=== PATIENT | female | born 1960 | race Caucasian/White ===

== ENCOUNTER 2018-06-17 06:33 | Emergency (ER) | payer OTHER ==
[2018-06-17 06:51] VITALS: TEMP 98.5; BMI 29.6
--- NOTE | 2018-06-17 07:35 | PDOC ---
History of Present Illness - General Chief Complaint: Dysphagia Stated Complaint: THROAT SWELLING Time Seen by Provider: 06/17/18 07:18 - History of Present Illness Initial Comments: 06/17/18 08:24 57 years old no significant past medical history presents to the emergency department several day history of sore throat and swollen tonsils Patient has had strep throat 1 year ago this feels very similar. Subjective fever difficulty swallowing but has been able to tolerate foods and liquids. No neck stiffness No severe headache no rhinorrhea no conjunctivitis no cough. No chest pain or shortness of breath no nausea no vomiting or diarrhea. Symptoms are moderate 8 out of 10 sore, persistent constant worse with swallowing no alleviating factors. Past History - Past Medical History Allergies/Adverse Reactions: Allergies Allergy/AdvReac Type Severity Reaction Status Date / Time ANTIBIOTIC FOR ACNE Allergy "VOMITING,STOMACH Uncoded 04/23/16 07:27 PAIN" IGNACIO Allergy Itching Uncoded 04/23/16 07:27 Home Medications: Ambulatory Orders Bisacodyl [Dulcolax] 5 mg PO DAILY 04/10/16 Penicillin V Potassium [Pen Vee K -] 500 mg PO BID 10 Days #20 tablet 06/17/18 Anemia: No Cardiac Disorders: No - Surgical History Cholecystectomy: Yes - Suicide/Smoking/Psychosocial Hx Smoking History: Never smoked Have you smoked in the past 12 months: No Information on smoking cessation initiated: No Hx Alcohol Use: No Drug/Substance Use Hx: No Substance Use Type: None Hx Substance Use Treatment: No Review of Systems - Review of Systems Comments:: 06/17/18 08:25 ROS: A complete review of 10 out of 10 review of systems is taken and is negative apart from what is previously mentioned below and in the HPI. *Physical Exam - Vital Signs Last Vital Signs Temp Pulse Resp BP Pulse Ox 98.5 F 81 20 136/82 99 06/17/18 06:40 06/17/18 06:40 06/17/18 06:40 06/17/18 06:40 06/17/18 06:40 - Physical Exam Comments: 06/17/18 08:25 Vitals: Triage Vital signs reviewed General Appearance: no acute distress, well nourished well developed, Head: Atraumatic, Nose: Nares patent bilaterally;no nasal congestion Throat: Posterior oropharynx with erythema and exudate, mucous membranes moist, Neck: Supple;No Nucal rigidity Chest Wall: Nontender Cardiac: Regular rate and rhythym, no murmurs, no rubs, no gallops, Lungs: Clear to auscultation bilateral, good air movement bilaterally, Abdomen: Soft, non distended, normal bowel sounds, non tender to palpation Extremities: Full range of motion to all extremities, no cyanosis, clubbing, or edema Skin: Warm and dry, no rashes or lesions, no rash, no petechiae Psych: normal mood, normal affect Medical Decision Making - Medical Decision Making 06/17/18 08:37 Bilateral tonsillar exudate no neck stiffness well-appearing tolerating fluids no fever no runny nose no cough history examination consistent with strep pharyngitis Patient treated with Decadron and Toradol and ED feels better tolerating fluids although rapid strep test was negative this does not have a 100% sensitivity given classic symptomatology we'll treat with course of antibiotics Findings, the need for follow-up and strict return instructions discussed with patient. *DC/Admit/Observation/Transfer Diagnosis at time of Disposition: Tonsillitis - Discharge Dispostion Disposition: HOME Condition at time of disposition: Fair Decision to Admit order: No - Referrals Referrals: [facility] [place] [Provider Group] - Patient Instructions Printed Discharge Instructions: DI for Pharyngitis/Tonsillopharyngitis -- Adult Additional Instructions: Take [id number] Motrin as directed on package. Drink plenty fluids. Take penicillin as prescribed. Take full course. Follow-up with the clinic in 2-3 days. Return to the emergency department for any severe headache severe neck pain difficulty breathing swallowing or for any concerns. - Post Discharge Activity Forms/Work/School Notes: Back to Work
[2018-06-17] MEDS ORDERED: DEXAMETHASONE SOD PHOSPHATE 10 MG/1 ML VIAL IM ONE (07:44)
[2018-06-17] MEDS ORDERED: KETOROLAC TROMETHAMINE 30 MG/1 ML VIAL IM ONE (07:44)
[2018-06-17] MEDS ORDERED: DEXAMETHASONE SOD PHOSPHATE 10 MG/1 ML VIAL ONE (07:53)
[2018-06-17] MEDS ORDERED: KETOROLAC TROMETHAMINE 30 MG/1 ML VIAL ONE (07:54)
[2018-06-17 09:04] VITALS: BP 132/78; PULSE 68
== END 2018-06-17 08:55 | disposition home or self-care (01) ==
LOC: JER 06:33
PROC: 3E0233Z Introduction of Anti-inflammatory into Muscle, Percutaneous Approach (ICD-10-PCS; principal; 2018-06-17)
PROC: 3E0233Z Introduction of Anti-inflammatory into Muscle, Percutaneous Approach (ICD-10-PCS; 2018-06-17)
DX: J03.90 Acute tonsillitis, unspecified (principal)
CPT/HCPCS: 87070; 87430; 99282-25; J1100

== ENCOUNTER 2020-02-20 07:45 | Day surgery (SDC) | payer OTHER ==
[2020-02-16 13:13] VITALS: BMI 28.3
[2020-02-20] MEDS ORDERED: MIDAZOLAM HCL 2 MG/2 ML SINGLE DOSE VIAL ONE (09:59)
[2020-02-20] MEDS ORDERED: PROPOFOL 20 ML ONE ×2 (10:04)
[2020-02-20] MEDS ORDERED: ceFAZolin SODIUM 1 GM VIAL ONE (10:59)
[2020-02-20] MEDS ORDERED: ONDANSETRON 4 MG/2 ML VIAL ONE ×2 (11:03→12:41)
[2020-02-20] MEDS ORDERED: DEXAMETHASONE SOD PHOSPHATE 4 MG/1 ML VIAL ONE (11:03)
[2020-02-20] MEDS ORDERED: ONDANSETRON 4 MG/2 ML VIAL IVPUSH PRN (12:27)
[2020-02-20] MEDS ORDERED: PROMETHAZINE HCL 25 MG/1 ML VIAL ONE (12:43)
[2020-02-20] MEDS ORDERED: ACETAMINOPHEN 1000 MG/100 ML VIAL (NON FORMULARY) IVPB ONE ×2 (13:09)
[2020-02-20 15:27] VITALS: BP 123/68; PULSE 76; TEMP 97.9
--- NOTE | 2020-02-23 08:39 | OP ---
DATE OF OPERATION: 02/20/2020 SURGEON: Braden Juan MD CHIP LOFT WORKER: MARIO Hanna PREOPERATIVE DIAGNOSIS: 1. Right shoulder rotator cuff tear. 2. Right shoulder adhesive capsulitis. 3. Right shoulder impingement syndrome. 4. Right shoulder acromioclavicular joint disease. 5. Right shoulder subluxated anterior and posterior synovitis. POSTOPERATIVE DIAGNOSIS: PROCEDURE: 1. Right shoulder arthroscopy with arthroscopic rotator cuff repair, CPT code 92504. 2. Right shoulder arthroscopy with lysis and resection of adhesions, CPT code 04956. 3. Right shoulder arthroscopy with subacromial decompression, CPT code 87006. 4. Right shoulder arthroscopy with resection of distal clavicle and acromioclavicular joint, CPT code 29226. 5. Right shoulder arthroscopy with debridement, CPT code 40477. FINDINGS: 1. Full-thickness rotator cuff tear. 2. Partial biceps tear x7. 3. type 1. 4. Anterior labral fraying. 5. Posterior labral fraying. 6. Anterior grade 2-3 cartilage of the glenoid humerus. 7. Thickened scar tissue of subacromial space with acromioclavicular degenerative joint disease. REPAIR TYPE: Four mattress sutures were placed into the supraspinatus and secured to a bleeding bone bed with 3 anchors placed, tying the 4 sutures together. PROCEDURE: Informed consent was obtained. The patient was taken to the operating room, where the upper extremity was prepped and draped in a sterile fashion. The shoulder was manipulated for a full range of motion. A posterior incision portal was made and directed to the glenohumeral joint. Under direct visualization, an anterior incision and portal was made. Extensive synovitis, as well as chondral injuries throughout the glenohumeral joint were debrided and removed. Any identified labral injuries, including the superior labral tear, anterior and posterior, and anterior labrum torn portions, were removed as well. The rotator cuff was visualized and noted to have a full-thickness tear. The edges were debrided. The posterior incision portal was redirected to the subacromial space where a lateral incision portal was made. Excessive and thickened scar tissue noted throughout the subacromial space, including bursal and scar tissue, were removed. The type 2 acromion was converted into a flattened type 1 using a bur for subacromial decompression. The distal inferior spur at the distal clavicle was also debrided with the use of an accessory portal in the acromioclavicular joint. The edges of the rotator cuff were identified. Sutures were placed into the rotator cuff and secured using anchors through the greater tuberosity. Prior to securing, a bleeding bed was made using a small bur, creating a bleeding surface of the rotator cuff insertion. The shoulder was then drained, a single suture was placed in all portals, a sterile dressing was placed and the patient was transferred to the recovery room without complication. The PA listed above was present and assisted at surgery. Their presence was absolutely medically necessary for the completion of the procedure. They helped hold the arthroscopy, pass instruments (and implants when indicated) and the procedure could not have been completed without their assistance. The PA listed above was present and assisted at surgery. Their presence was absolutely medically necessary for the completion of the procedure. They helped hold the arthroscopy, pass instruments (and implants when indicated) and the procedure could not have been completed without their assistance. BRADEN JUAN M.D. [id number]
--- NOTE | 2020-02-24 16:59 | PATH ---
Surgical Pathology Report Patient Name: RATNA CULLEN [facility]. Rec. #: [id number] /Age/Gender: 1960 (Age: 59) / F Account: [id number] Location: [facility] Taken: 02/20/2020 Received: 02/20/2020 Reported: 02/24/2020 Physicians: Mahamed Palma M.D. Specimen(s) Received RIGHT SHOULDER SHAVINGS Clinical History Complete rotator cuff tear right shoulder Final Diagnosis RIGHT SHOULDER SHAVINGS: FRAGMENTS OF BONE, SKELETAL MUSCLE, FIBROCARTILAGINOUS AND SYNOVIAL TISSUE WITH FOCAL DEGENERATIVE CHANGE. Electronically Signed Osiris Carreno M.D. Gross Description Received in formalin, labeled "right shoulder shavings," is a 5.0 x 5.0 x 0.3 cm. aggregate of self-yellow soft tissue fragments. A hr representative portion is submitted in one cassette. /02/23/2020 [facility]02/23/2020
== END 2020-02-20 15:28 | disposition home or self-care (01) ==
LOC: FASU 07:45
PROVIDERS: ATTEND Orthopaedic Surgery
PROC: 0RNJ4ZZ Release Right Shoulder Joint, Percutaneous Endoscopic Approach (ICD-10-PCS; 2020-02-20)
PROC: 0PB94ZZ Excision of Right Clavicle, Percutaneous Endoscopic Approach (ICD-10-PCS; 2020-02-20)
PROC: 0RBJ4ZZ Excision of Right Shoulder Joint, Percutaneous Endoscopic Approach (ICD-10-PCS; 2020-02-20)
PROC: 0LQ14ZZ Repair Right Shoulder Tendon, Percutaneous Endoscopic Approach (ICD-10-PCS; principal; 2020-02-20 10:30)
DX: M75.121 Complete rotator cuff tear or rupture of right shoulder, not specified as traumatic (principal); M75.41 Impingement syndrome of right shoulder; M75.01 Adhesive capsulitis of right shoulder; M19.011 Primary osteoarthritis, right shoulder
CPT/HCPCS: 88304-TC; 94760; J0131

== ENCOUNTER 2024-05-26 17:02 | Emergency (ER) | payer OTHER ==
[2024-05-26 17:20] VITALS: BP 136/79; PULSE 84; RESP 16; TEMP 98.3; BMI 30.2
[2024-05-26] MEDS ORDERED: LIDOCAINE 5% TOPICAL PATCH ONE (17:22)
[2024-05-26] MEDS ORDERED: KETOROLAC TROMETHAMINE 30 MG/1 ML VIAL ONE (17:22)
[2024-05-26] MEDS ORDERED: CYCLOBENZAPRINE HCL 5 MG TABLET ONE (17:22)
[2024-05-26] MEDS: KETOROLAC TROMETHAMINE 30 MG/1 ML VIAL IM ONE (17:30)
[2024-05-26] MEDS: CYCLOBENZAPRINE HCL 5 MG TABLET PO ONE (17:30)
[2024-05-26] MEDS: LIDOCAINE 5% TOPICAL PATCH TP ONE (18:25)
[2024-05-26] MEDS ORDERED: LIDOCAINE PATCH REMOVAL MC SCH (22:00)
== END 2024-05-26 19:10 | disposition home or self-care (01) ==
LOC: FER 17:02
PROC: 3E0233Z Introduction of Anti-inflammatory into Muscle, Percutaneous Approach (ICD-10-PCS; principal; 2024-05-26)
DX: M54.50 Low back pain, unspecified (principal); G89.29 Other chronic pain
CPT/HCPCS: 72131-TC; 99284-25